=== PATIENT | female | born 1975 | race Caucasian/White ===

== ENCOUNTER 2023-08-19 10:45 | Outpatient (CLI) | payer BC, SELFPAY ==
--- OUTSIDE RECORDS SUMMARY | 2023-08-19 10:51 | XMS_ITS | Encounter Summary ---
Author Name Unknown Organization [facility] Address [address] [place] [address] Care Team Providers Care Caster Helper Name Role Phone Brooklyn Morel APRN, C.N.P. Primary Care Provide r Reason for Referral * Outpatient (Routine) - Closed Specialty Diagnoses / Procedures Referred By Chrystal t Referred To Contact Family Medicine Brooklyn Morel APRN, C.N.P. [address] [place] [address] [facility] Referral ID Status Reason Start Date Expiration Date Visits Re quested Visits Authorized [id number] Closed 02/06/2023 02/05/2026 1 1 Encounter Details Date Type Department Care Team (Late st Contact Info) Description 02/06/2023 Orders Only [facility] Brooklyn Morel APRN, C.N.P. [address] [place] [address] Screening Examination Diabetes Mellitus; Screening Lipid Social History Tobacco Use Types Packs/Day Years Used Date Smoking Tobacco: Never Assessed Humiliation, Afraid, Rape, and Kick questionnair e Answer Date Recorded Within the last year, have y ou been afraid of your partner or ex-partner? No 06/19/2022 Within the last year, have y ou been humiliated or emotionally abused in other ways by your partner or ex-partner? No Within the last year, have y ou been kicked, hit, slapped, or otherwise physically hurt by your partner or ex-partner? No 06/19/2022 Within the last year, have y ou been raped or forced to have any kind of sexual activity by your partner or ex-partner? No 06/19/2022 Social Connection and Isolat ion Panel [NHANES] Answer Date Recorded In a typical week, how many times do you talk on the phone with family, friends, or neighbors? Three times a week 06/19/2022 How often do you get togethe r with friends or relatives? Once a week 06/19/2022 How often do you attend chur ch or gnosticist services? Never 06/19/2022 Do you belong to any clubs o r organizations such as buddhism groups, unions, fraternal or athletic groups, or school groups? Yes 06/19/2022 How often do you attend meet ings of the clubs or organizations you belong to? More than 4 times per year 06/19/2022 Are you , , di vorced, , never , or living with a partner? 06/19/2022 AUDIT-C Answer Date Recorded Q1: How often do you have a drink containing alc ohol? Never 06/19/2022 Average Number of Drinks Not on file 022 Frequency of Binge Drinking Not on file 06/07 Overall Financial Resource Strain (CARDIA) Answe r Date Recorded How hard is it for you to pa y for the very basics like food, housing, medical care, and heating? Not hard at all 06/19/2022 [facility] - Occupational Stress Questionnaire Answer Date Recorded Do you feel stress - tense, restless, nervous, or anxious, or unable to sleep at night because your mind is troubled all the time - these days? Not at all 06/19/2022 Exercise Vital Sign Answer Date Recorde d On average, how many days pe r week do you engage in moderate to strenuous exercise (like a brisk walk)? 2 days 06/19/2022 On average, how many minutes do you engage in exercise at this level? 20 min 06/19/2022 Hunger Vital Sign Answer Date Recorded Within the past 12 months, y ou worried that your food would run out before you got the money to buy more. Never true 06/19/20 Within the past 12 months, t he food you bought just didn't last and you didn't have money to get more. Never true 06/19/2022 PRAPARE - Transportation Answer Date Re corded In the past 12 months, has l ack of transportation kept you from medical appointments or from getting medications? No 06/07 In the past 12 months, has l ack of transportation kept you from meetings, work, or from getting things needed for daily living? No 06/19/2022 Housing Stability Vital Sign Answer Carson e Recorded In the last 12 months, was t here a time when you were not able to pay the mortgage or rent on time? No 06/19/2022 In the last 12 months, how many places have you lived? 1 06/19/2022 In the last 12 months, was t here a time when you did not have a steady place to sleep or slept in a penitentiary (including now)? No 06/19/2022 Nutrition Answer Date Recorded Nutrition: EVOO Fat Source No 06/19 On average, how many serving s of fruits and vegetables do you eat per day (serving size is equal to 1 cup or approximately the size of a tennis ball)? 2-3 06/19/2022 Dental Answer Date Recorded Dental: Regular Dentist Yes 06/19/20 Employment Answer Date Recorded Employment status Employed and actively working without restrictions 06/19/2022 Education Answer Date Recorded What is the highest level of school you have completed or the highest degree you have received? Bachelor's degree (e.g., BA, AB, BS) 06/19/2022 Sex and Gender Information Value Date Recorded Sex Assigned at Female 06/19/2022 4:23 PM NEWS TECHNICAL DIRECTOR Gender Identity Female 06/19/2022 4:23 PM NEWS TECHNICAL DIRECTOR Sexual Orientation Straight 06/19/2022 4: 23 PM NEWS TECHNICAL DIRECTOR documented as of this encounter Plan of Treatment Scheduled Referrals Name Type Priority Associated Diagnoses Orde r Schedule Family Medicine office visit (clinic) Outpatient Referral Routine Expected: 02/20/2023, Expires: 08/05/2023 documented as of this encounter Visit Diagnoses Diagnosis Screening Examination Diabetes Mellitus Screening Lipid documented in this encounter Care Teams Caster Helper Relationship Specialty Start Date End Date Brooklyn Morel APRN, C.N.P. [address] [place] [address] PCP - General Family Medicine 12/24/22 documented as of this encounter
--- OUTSIDE RECORDS SUMMARY | 2023-08-19 10:51 | XMS_ITS | Clinical Summary ---
Author Name Unknown Organization [facility] Address [place], [place] [address] Care Team Providers Care C D Stripper Name Role Phone Rosalinda Montalvo Primary Care Provider Allergies Active Allergy Reactions Criticality Noted Date Comments Sunlight Hives 08/15/2010 Medications Medication Sig Dispensed Refills Start Date End Date Status HYDROcodone-acetam inophen, 7.5-325 mg, (NORCO 7.5-325) 7.5-325 mg per tabletIndications: Rib pain on right side Take 1 tablet by mouth every 6 hours if needed for Pain Max acetaminophen dose: 4000mg in 24 hrs. 30 tablet 0 03/20/2016 Active Active Problems No known active problems Immunizations Name Administration Dates Next Due MMR 01/09/2013 Td (Age >=7 Years) 01/28/2004 Tdap 01/07/2011 Tuberculin (PPD) 01/07/2013,12/22/2012 Family History Medical History Relation Name Comments Hypertension Father Cancer-breast Other Cousin Genetic Sister Patti's Diseas e (autosomal recessive neurodegenerative disorder) Seizures Sister part of Patti' s Disease Relation Name Status Comments Father Other Sister Social History Tobacco Use Types Packs/Day Years Used Date Smoking Tobacco: Never Smokeless Tobacco: Never Alcohol Use Standard Drinks/Week Comments No 0 (1 standard drink = 0.6 oz pur e alcohol) Sex and Gender Information Value Date Recorded Sex Assigned at Not on file Gender Identity Not on file Sexual Orientation Not on file Obstetrics History Para Term AB IAB SAB Ectopic Multiple Livin g Live Births 3 3 Date Outcome GA Total Labor Labor/2nd/3rd Weight Sex Delivery Anes PTL Hailey A1 A5 Name Cl in Para Para Para Last Filed Vital Signs Vital Sign Reading Time Taken Comments Blood Pressure 128/86 03/20/2016 1:52 PM CDT Pulse 80 03/20/2016 1:52 PM CDT Temperature 37.6 ??C (99.7 ??F) 03/20/2016 1:52 PM CD T Respiratory Rate - - Oxygen Saturation 98% 03/20/2016 1:52 PM CDT Inhaled Oxygen Concentration - - Weight 112.5 kg (248 lb) 03/20/2016 1:52 PM CDT Height 170.2 cm (5' 7.01) 03/20/2016 1:52 PM CD T Body Mass Index 38.83 03/20/2016 1:52 PM CDT Plan of Treatment Health Maintenance Due Date Last Done Comments COVID-19 vaccine series (#1) 03/15/1974 HIV for age 15-65 1988 Hepatitis C screening for age 18-79 09/13/1991 Depression screening for age 12+ 03/08/2017 03/08/2016 BMI (ht and wt on same day) for age 18+ 03/20/2017 03/20/2016, 03/08/2016 Colonoscopy through age 75 2018 Lipids for age 45-75 2018 12/22/2012 Mammogram for age 45-75 2018 Tetanus booster 01/07/2021 01/07/2011, 01/06 (Completed outside of [facility]), 01/28/2004 Pap test for age 21-65 05/15/2022 9, 05/15/2019, 08/14/2016, Additional history exists Influenza for age 9-49 03/08/2023 Tdap Completed 01/07/2011 Pneumococcal series for age 6-64 Aged Out No longer eligible based on patient's age to complete this topic Care Teams C D Stripper Relationship Specialty Start Date End Date Rosalinda Montalvo PA PCP - General Family Practice 12/22/12
--- OUTSIDE RECORDS SUMMARY | 2023-08-19 10:51 | XMS_ITS ---
Author Name Unknown Organization [facility] Address [address] [place] [address] Care Team Providers Care Electric Motor Controls Assembler Name Role Phone Unavailable Unavailable Unavailable Surgery Details Not on file Complications Check Surgery Details section. Procedure Estimated Blood Loss Check Surgery Details section. Procedure Findings Check Surgery Details section. Procedure Specimens Taken Check Surgery Details section.
--- OUTSIDE RECORDS SUMMARY | 2023-08-19 10:51 | XMS_ITS | Encounter Summary ---
Author Name Unknown Organization [facility] Address [address] [place] [address] Care Team Providers Care Cup Trimming Machine Operator Name Role Phone Brooklyn Morel APRN, C.N.P. Primary Care Provide r Reason for Referral * Outpatient (Routine) - Authorized Specialty Diagnoses / Procedures Referred By Chrystal t Referred To Contact Family Medicine Brooklyn Morel APRN, C.N.P. [address] [place] [address] [facility] Referral ID Status Reason Start Date Expiration Date V isits Requested Visits Authorized [id number] Authorized 08/13/2023 02/11/2025 1 1 RGROUND MINE SUPERINTENDENT Encounter Details Date Type Department Care Team (Late st Contact Info) Description 08/13/2023 [facility] Only [facility] Brooklyn Morel APRN, C.N.P. [address] [place] [address] Social History Tobacco Use Types Packs/Day Years Used Date Smoking Tobacco: Never Smokeless Tobacco: Never Humiliation, Afraid, Rape, and Kick questionnair e [...] often do you attend chur ch or mormonism services? Never 06/19/2022 Do you belong to any clubs o r organizations such as orthodoxy groups, unions, fraternal or athletic groups, or [...] and heating? Not hard at all 06/19/2022 PHQ-2 Answer Date Recorded PHQ-2 Score 0 04/08/2023 [facility] - Occupational Stress [...] place to sleep or slept in a mcc (including now)? No 06/19/2022 Nutrition Answer Date [...] Sex Assigned at Female 06/19/2022 4:23 PM UNDERGROUND MINE SUPERINTENDENT Gender Identity Female 06/19/2022 4:23 PM UNDERGROUND MINE SUPERINTENDENT Sexual Orientation Straight 06/19/2022 4: 23 PM UNDERGROUND MINE SUPERINTENDENT documented as of this encounter Plan of Treatment Scheduled Referrals Name Type Priority Associated Diagnoses Orde r Schedule Family Medicine office visit (clinic) Outpatient Referral Routine Expected: 08/27/2023, Expires: 02/09/2024 documented as of this encounter Visit Diagnoses Not on filedocumented in this encounter Care Teams Cup Trimming Machine Operator Relationship Specialty Start Date End Date Brooklyn Morel APRN, C.N.P. [address] [place] [address] PCP - General Family Medicine 12/24/22 documented as of this encounter
--- OUTSIDE RECORDS SUMMARY | 2023-08-19 10:51 | XMS_ITS | Encounter Summary ---
Author Name Unknown Organization [facility] Address [address] [place] [address] Care Team Providers Care Orchard Manager Name Role Phone Brooklyn Morel APRN, C.N.P. Primary Care Provide r Reason for Referral * Outpatient (Routine) - Authorized Specialty Diagnoses / Procedures Referred By Chrystal lawson Referred To Contact Obstetrics and Gynecology Diagnoses Menstrual Irregularity Brooklyn Morel APRN, C.N.P. [address] [place] [address] [facility] Region Referral ID Status Reason Start Date Expiration Date V isits Requested Visits Authorized [id number] Authorized 04/08/2023 04/07/2024 1 1 Reason for Visit * Reason Comments Establish Care Pap and labs needed. No period in February but last period was very heavy * Outpatient (Routine) - Closed Specialty Diagnoses / Procedures Referred By Chrystal lawson Referred To Contact Family Medicine Brooklyn Morel APRN, C.N.P. [address] [place] [address] [facility] Region Referral ID Status Reason Start Date Expiration Date Visits Re quested Visits Authorized [id number] Closed 02/06/2023 02/05/2026 1 1 Encounter Details Date Type Department Care Team (Late st Contact Info) Description 04/08/2023 4:00 PM CDT Office Visit Department of Family Medicine, [facility], in [address] [phone] Brooklyn Morel, SISTER SUPERIOR, C.N.P. [address] [facility] [place] [phone] Health Maintenance Examination Adult (Primary Dx); Menstrual Irregularity Discharge Disposition: Home or Self Care Social History Tobacco Use Types Packs/Day Years Used Date Smoking Tobacco: Never Smokeless Tobacco: Never Tobacco Cessation:Counseling Given: Not Answered Humiliation, Afraid, Rape, and Kick questionnair e [...] 06/19/2022 How often do you attend chur or adventism services? Never 06/19/2022 Do you belong to any clubs o r organizations such as anglican groups, unions, fraternal or athletic groups, or [...] Answer Date Recorded PHQ-2 Score 0 04/08/2023 [facility] - Occupational [...] money to buy more. Never true 06/19/20 22 Within the past 12 months, t he [...] place to sleep or slept in a [facility] (including now)? No 06/19/2022 Nutrition Answer Date [...] Sex Assigned at Female 06/19/2022 4:23 PM AITCHBONE BREAKER Gender Identity Female 06/19/2022 4:23 PM AITCHBONE BREAKER Sexual Orientation Straight 06/19/2022 4: 23 PM AITCHBONE BREAKER documented as of this encounter Last Filed Vital Signs Vital Sign Reading Time Taken Comments Blood Pressure 123/83 04/08/2023 4:14 PM CDT Pulse 98 04/08/2023 4:14 PM CDT Temperature 36.3 ??C (97.3 ??F) 04/08/2023 4:14 PM CD T Respiratory Rate - - Oxygen Saturation 96% 04/08/2023 4:14 PM CDT Inhaled Oxygen Concentration - - Weight 122 kg (268 lb 15.4 oz) 04/08/2023 4:14 P M CDT Height 172.1 cm (5' 7.76) 04/08/2023 4:14 PM CD T Body Mass Index 41.19 04/08/2023 4:14 PM CDT documented in this encounter H&P Notes * Brooklyn Morel, GÓMEZ, C.N.P. - 04/08/2023 4:00 PM CDT SUBJECTIVE HISTORY OF PRESENT ILLNESS Rand Wright is a 47 y.o. female here for an annual exam/ establish care. Periods are irregular lasting 5 days without spotting or dysmenorrhea. Patient reports heavy menstruation, cramps, no period for the month of Feb, Mar or Apr. Current contraception: abstinence Diet: well balanced-cook at home when able, on the go Exercise:Occasional cardiovascular exercise outside of work. Encouraged to increase frequency to 3-4 days/week Mental Health Concerns: No Counseled regarding getting 1200 mg Calcium and 800 IU Vit D between diet and supplements, ABCDs ofchanging moles discussed and to have skin lesions evaluated if such changes occur. Sunscreen use encouraged. Dental exams and eye exams encouraged regularly. PREVENTATIVE MEASURES: Vaccines: up to date as of today Labs:Pending Pap: 05/15/19 Mammogram: December 2022-completed Colon Screening: colonoscopy - 06-27, will need q 3 years Bone Density: none STD screening: none CURRENT MEDICATIONS No current outpatient medications on file. No current facility-administered medications for this visit. SURGICAL HISTORY, FAMILY HISTORY Reviewed/Updated REVIEW OF SYSTEMS REVIEW OF SYSTEMS OBJECTIVE PHYSICAL EXAMINATION General appearance: Alert, no distress. Skin: No rashes or suspicious skin lesions noted. Eye: Conjunctivae normal. No scleral icterus. Pupils equal and round. ENT: Ears with normal canals and TMs. Nares normal. Oropharynx normal without erythema, edema or exudate. Uvula midline. Neck: No adenopathy or thyromegaly. Heart: Regular rate and rhythm without murmur. No leg edema. Lungs: Clear to auscultation with normal respiratory effort. Extremities: No edema. Motor strength and sensation grossly intact. Abdomen: Soft, non-tender. No guarding or rigidity. No organomegaly. Neurologic: CN II-XII intact as tested. Psych: Behavior, mood, affect, cognition and insight are all appropriate ASSESSMENT / PLAN 1. Health Maintenance Examination Adult Annual Wellness exam today. Discussed routine health maintenance for age. #1 Health Maintenance Examination Adult - Lipid Panel; Future; Expected date: 07/09/2023 - Glucose, Fasting; Future; Expected date: 07/09/2023 - Basic Metabolic Panel; Future; Expected date: 07/09/2023 #2 Menstrual Irregularity - Obstetrics and Gynecology - Gynecology consult (clinic); Future; Expected date: 04/08/2023 Other orders - Family Medicine office visit (clinic) - CBC with Differential, Blood; Future; Expected date: 07/09/2023 Lipid screen: Labs pending Diabetes screen: Labs pending Colonoscopy: Due at 2023 Immunizations: up to date Mammogram: 09/12/18-last completed. Bone Density: Due at age 63 Follow-up 1 year for annual exam or return to clinic sooner if any problems develop. Plan: Labs pending, health maintenance was reviewed today. Patient will sign a release for her health records to come over from the [facility]. Past medical surgery and family history reviewed today. Patient was asked to follow-up in clinic in 1-2 months to review records and further health maintenance topics. Patient/caregiver was instructed to contact the clinic if symptoms fail to improve as discussed, worsen, or change. Patient/caregiver was in agreement with the care plan and all questions were answered. Health maintenance was discussed, and the patient/caregiver was encouraged to complete these if not already completed. Patient left in no acute distress. Brooklyn Morel APRN, C.N.P. documented in this encounter Plan of Treatment Scheduled Orders Name Type Priority Associated Diagnoses Orde r Schedule Lipid Panel Lab Routine Health Maintenance Examination Adult Expected: 07/09/2023 (Approximate), Expires: 07/09/2024 Glucose, Fasting Lab Routine Health Maintenance Examination Adult Expected: 07/09/2023 (Approximate), Expires: 07/09/2024 Basic Metabolic Panel Lab Routine Health Maintenance Examination Adult Expected: 07/09/2023 (Approximate), Expires: 07/09/2024 CBC with Differential, Blood Lab Routine Health Maintenance Examination Adult Menstrual Irregularity Expected: 07/09/2023 (Approximate), Expires: 07/09/2024 Scheduled Referrals Name Type Priority Associated Diagnoses Orde r Schedule Obstetrics and Gynecology - Gynecology consult (clinic) Outpatient Referral Routine Menstrual Irregularity Expected: 04/08/2023 (Approximate), Expires: 07/09/2024 documented as of this encounter Visit Diagnoses Diagnosis Health Maintenance Examination Adult- Primary Menstrual Irregularity documented in this encounter Care Teams Orchard Manager Relationship Specialty Start Date End Date Brooklyn Morel APRN, C.N.P. [address] [place] [phone] PCP - General Family Medicine 12/24/22 documented as of this encounter
--- OUTSIDE RECORDS SUMMARY | 2023-08-19 10:51 | XMS_ITS | Clinical Summary ---
Author Name Unknown Organization [facility] Address [address] [place] [address] Care Team Providers Care Visitor Services Information Assistant Name Role Phone Brooklyn Morel APRN, C.N.P. Primary Care Provide r Source Comments Patient records contain information from all sites at [facility]. For routine questions regarding patient records, call [phone] during business hours, M-F 8:00 AM - 5:00 PM Central Time. Record requests for emergency care only can be directed to [phone] at any time.[facility] Allergies Active Allergy Reactions Criticality Noted Date Comments Venom-Honey Bee Hives (Reselect Reaction),Itching 04/01/2021 Medications No known medications Encounters Date Type Department Care Team Description 08/13/2023 Orders Only [facility] SELF TEST [facility] [address] [place] [phone] Brooklyn Morel APRN, C.N.P. Screening Cancer Colon 08/13/2023 Orders Only [facility] PCP [facility] Brooklyn Morel APRN, C.N.P. from Last 3 Months Immunizations Name Administration Dates Next Due H1N1 All Forms 06/24/2009 MMR 01/09/2013 Td (Adult), adsorbed 01/28/2004,02/04/2003 Tdap 04/18/2021,01/07/2011 Family History Medical History Relation Name Comments Diabetes mellitus - adult onset Father Hypertension Father Breast cancer Father's Sister 1 Maia 60s Breast cancer Father's Sister 2 Jade 60s Breast cancer Father's Sister 3 Pao 40s Cancer Father's Sister 4 Anabel suspect me tastatic breast cancer Breast cancer Paternal Cousin 1 Maria Esther late 30s Breast cancer Paternal Cousin 2 Gris mid 40s Breast cancer Paternal Cousin 3 60s Prostate cancer Paternal Grandfather late 70s Patti disease Sister 1 Relation Name Status Comments Brother 1 Alive Brother 2 Alive Father Alive Father's Brother 1 (Age 84) Father's Brother 2 Alive Father's Sister 1 Nicole Lyons Alive Father's Sister 2 Jade Father's Sister 3 Pao (Age 45) Father's Sister 4 Anabel (Age 70) Maternal Grandfather (Age 62) Maternal Grandmother (Age 76) Mother Alive Niece/Nephew 1 Alive Niece/Nephew 2 Alive Niece/Nephew 3 Alive Other Alive Paternal Cousin 1 Maria Esther (Age 42) Paternal Cousin 2 Gris Alive Paternal Cousin 3 Alive Paternal Grandfather (Age 80) Paternal Grandmother (Age 81) Sister 1 (Age 40) Sister 2 Alive Son 1 Alive Son 2 Alive Son 3 Alive Uncle Mat Half Aunt thru GM Alive father is pt's maternal grandfather's brother Social History Tobacco Use Types Packs/Day Years [...] week 06/19/2022 How often do you attend [facility] or synagogue services? Never 06/19/2022 Do you belong to any clubs o r organizations such as taoist groups, unions, fraternal or athletic groups, or [...] Answer Date Recorded PHQ-2 Score 0 04/08/2023 [facility] - Occupational Stress Questionnaire Answer Date Recorded [...] place to sleep or slept in a custodial (including now)? No 06/19/2022 Nutrition Answer Date [...] Sex Assigned at Female 06/19/2022 4:23 PM CHIP FRIER Gender Identity Female 06/19/2022 4:23 PM CHIP FRIER Sexual Orientation Straight 06/19/2022 4: 23 PM CHIP FRIER Last Filed Vital Signs Vital Sign Reading [...] Mass Index 41.19 04/08/2023 4:14 PM CDT Plan of Treatment Health Maintenance Due Date Last Done Comments CT Colonography 1973 Cervical Cancer Screening 1973 Cologuard 1973 Colonoscopy 1973 Colorectal Cancer Screening 1973 FIT 1973 Fasting Glucose for Diabetes Screening 1973 HIV Screening 1973 Hepatitis B Vaccines (1 of 3 - 3-dose series) 1973 Hepatitis C Screening 1973 Lipid (Cholesterol) Screening 1973 Influenza Vaccine (#1) 2023 Depression Screening (Annual PHQ-2) 07/08/2023 Mammogram 12/27/2023 12/26/2022, 07/10, 08/24/2016, Additional history exists COVID-19 Vaccine (#1) 04/08/2024 Postpo elinor from 03/15/1974 (Patient Refused) DTaP,Tdap,and Td Vaccines (3 - Td or Tdap) 04/18/2031 04/18/2021, 01/07/2011, 01/28/2004, Additional history exists Pneumococcal vaccine (0-64 years) Aged Out No longer eligible based on patient's age to complete this topic Care Teams Visitor Services Information Assistant Relationship Specialty Start Date End Date Brooklyn Morel APRN, C.N.P. [address] [place] [phone] PCP - General Family Medicine 12/24/22
--- OUTSIDE RECORDS SUMMARY | 2023-08-19 10:51 | XMS_ITS | Encounter Summary ---
Author Name Unknown Organization [facility] Address [address] [place] [address] Care Team Providers Care Dye Penetrant Testing Technician Name Role Phone [place] APRN, C.N.P. Primary Care Provide r Reason for Referral * Outpatient (Routine) - Closed Specialty Diagnoses / Procedures Referred By Chrystal lawson Referred To Contact Diagnoses Screening Mammogram Breast Cancer Procedures BI Breast Screening Bilateral with Tomosynthesis [place] Morel APRN, C.N.P. [address] [place] [address] [facility] Region Referral ID Status Reason Start Date Expiration Date Visits Re quested Visits Authorized [id number] Closed 12/24/2022 12/24/2023 1 1 Reason for Visit * Outpatient (Routine) - Closed Specialty Diagnoses / Procedures Referred By Chrystal lawson Referred To Contact Diagnoses Screening Mammogram Breast Cancer Procedures BI Breast Screening Bilateral with Tomosynthesis [place] Morel APRN, C.N.P. [address] [place] [address] [facility] Region Referral ID Status Reason Start Date Expiration Date Visits Re quested Visits Authorized [id number] Closed 12/24/2022 12/24/2023 1 1 Encounter Details Date Type Department Care Team (Latest Contact Info) Description 12/26/2022 9:45 AM CDT - 12/26/2022 11:59 PM CDT Hospital Encounter Department of Radiology in [address] [place] [phone] [place]l, SOA INTEGRATION DEVELOPER, C.N.P. [address] [place] [phone] Screening Mammogram Breast Cancer Discharge Disposition: Home or Self Care Social [...] How often do you attend chur or latter-day services? Never 06/19/2022 Do you belong to any clubs o r organizations such as rastafarian groups, unions, fraternal or athletic groups, or [...] and heating? Not hard at all 06/19/2022 [facility] [place] of Occupat ional Health - Occupational Stress [...] place to sleep or slept in a fci (including now)? No 06/19/2022 Nutrition Answer Date [...] Sex Assigned at Female 06/19/2022 4:23 PM BUSINESS STRATEGY MANAGER Gender Identity Female 06/19/2022 4:23 PM BUSINESS STRATEGY MANAGER Sexual Orientation Straight 06/19/2022 4: 23 PM BUSINESS STRATEGY MANAGER documented as of this encounter Plan of Treatment Not on file documented as of this encounter Procedures Procedure Name Priority Date/Time Associated Diagnosis Comments BI BREAST SCREENING BILATERAL WITH TOMOSYNTHESIS RAD - Routine (most inpatients and all outpatients) 12/26/2022 10:12 AM CDT Screening Mammogram Breast Cancer documented in this encounter Results * BI Breast Screening Bilateral with Tomosynthesis (12/26/2022 10:12 AM CDT) Anatomical Region Laterality Modality Breast, Breast Imaging RST L OS, Breast Imaging ARZ LOS, Breast Imaging FLA LOS Bilateral Mammography 12/26/2022 10:5 1 AM CDT Impressions 12/26/2022 10:54 AM CDT Negative. RECOMMENDATION: ??Annual Screening Mammogram ASSESSMENT: ??BI-RADS: 1: Negative. Narrative 12/26/2022 10:54 AM CDT EXAM: ??BI BREAST SCREENING BILATERAL WITH TOMOSYNTHESIS Current study was evaluated with a Computer Aided Detection (CAD) system. INDICATION: ??Screening mammogram. COMPARISON: ??Prior exam(s) were available and reviewed for comparison. DENSITY: ??b. There are scattered areas of fibroglandular density. FINDINGS: ??No mammographic findings of malignancy. Procedure Note Marilynn Medina M.D. - 12/26/2022 EXAM: BI BREAST SCREENING BILATERAL WITH TOMOSYNTHESIS Current study was evaluated with a Computer Aided Detection (CAD) system. INDICATION: Screening mammogram. COMPARISON: Prior exam(s) were available and reviewed for comparison. DENSITY: b. There are scattered areas of fibroglandular density. FINDINGS: No mammographic findings of malignancy. IMPRESSION: Negative. RECOMMENDATION: Annual Screening Mammogram ASSESSMENT: BI-RADS: 1: Negative. [place] Morel APRN, C.N.P. IMG BI PROCED URES documented in this encounter Visit Diagnoses Diagnosis Screening Mammogram Breast Cancer documented in this encounter Care Teams Dye Penetrant Testing Technician Relationship Specialty Start Date End Date [place]l APRN, C.N.P. [address] [place] [phone] PCP - General Family Medicine 12/24/22 documented as of this encounter
--- OUTSIDE RECORDS SUMMARY | 2023-08-19 10:51 | XMS_ITS | Encounter Summary ---
Author Name Unknown Organization [facility] Address [address] [place] [address] Care Team Providers Care Coating Mixer Tender Name Role Phone [place] Morel APRN, C.N.P. Primary Care Provide r Encounter Details Date Type Department Care Team (Late st Contact Info) Description 08/13/2023 Orders Only [facility] [address] [place] [address] [place] Morel APRN, C.N.P. [address] [place] [phone] Screening Cancer Colon Social History Tobacco Use Types Packs/Day Years [...] often do you attend chur ch or adventist services? Never 06/19/2022 Do you belong to any clubs o r organizations such as baptist groups, unions, fraternal or athletic groups, or [...] Answer Date Recorded PHQ-2 Score 0 04/08/2023 [facility] of Occupat ional Health - [...] place to sleep or slept in a senior care (including now)? No 06/19/2022 Nutrition Answer Date [...] Sex Assigned at Female 06/19/2022 4:23 PM BATTERY INSPECTOR Gender Identity Female 06/19/2022 4:23 PM BATTERY INSPECTOR Sexual Orientation Straight 06/19/2022 4: 23 PM BATTERY INSPECTOR documented as of this encounter Plan of Treatment Scheduled Orders Name Type Priority Associated Diagnoses Orde r Schedule Cologuard - Sent Out Lab Lab Routine Screening Cancer Colon Expected: 08/27/2023 (Approximate), Expires: 11/10/2024 documented as of this encounter Visit Diagnoses Diagnosis Screening Cancer Colon documented in this encounter Care Teams Coating Mixer Tender Relationship Specialty Start Date End Date [place] Morel APRN, C.N.P. [address] [place] [address] [place] [phone] PCP - General Family Medicine 12/24/22 documented as of this encounter
--- OUTSIDE RECORDS SUMMARY | 2023-08-19 10:51 | XMS_ITS | Referral Summary ---
Author Name Unknown Organization [facility] Address [address] [place] [address] Care Team Providers Care Convention Services Manager Name Role Phone [place] APRN, C.N.P. Primary Care Provide r Source Comments Patient records contain information from all sites at [facility]. For routine questions regarding patient records, call [phone] during business hours, M-F 8:00 AM - 5:00 PM Central Time. Record requests for emergency care only can be directed to [phone] at any time.[facility] Encounters Date Type Department Care Team Description 08/13/2023 Orders Only [facility] [address] [place] [phone] [place] APRN, C.N.P. Screening Cancer Colon 08/13/2023 Orders Only [facility] [place] APR[facility], C.N.P. from Last 3 Months Allergies Active Allergy Reactions Criticality Noted Date Comments Venom-Honey Bee Hives (Reselect Reaction),Itching 04/01/2021 Medications No known medications Immunizations Name Administration Dates Next Due H1N1 All Forms 06/24/2009 MMR 01/09/2013 Td (Adult), adsorbed 01/28/2004,02/04/2003 Tdap 04/18/2021,01/07/2011 Social History Tobacco Use Types Packs/Day Years [...] often do you attend chur ch or taoism services? Never 06/19/2022 Do you belong to any clubs o r organizations such as shinto groups, unions, fraternal or athletic groups, or [...] PHQ-2 Score 0 04/08/2023 [facility] of Occupat ional Health - Occupational Stress [...] place to sleep or slept in a usp (including now)? No 06/19/2022 Nutrition Answer Date [...] Sex Assigned at Female 06/19/2022 4:23 PM COIN DEALER Gender Identity Female 06/19/2022 4:23 PM COIN DEALER Sexual Orientation Straight 06/19/2022 4: 23 PM COIN DEALER Last Filed Vital Signs Vital Sign Reading [...] 04/08/2023 4:14 PM CDT Plan of Treatment Not on file Care Teams Convention Services Manager Relationship Specialty Start Date End Date [place] Morel APRN, C.N.P. [address] [place] [phone] PCP - General Family Medicine 12/24/22
== END 2023-08-19 10:46 | disposition home or self-care (01) ==
PROVIDERS: PCP Nurse Practitioner Family; Visit Provider Nurse Practitioner Family
DX: R53.1 Weakness (principal); R19.7 Diarrhea, unspecified; Z13.228 Encounter for screening for other metabolic disorders; Z13.0 Encounter for screening for diseases of the blood and blood-forming organs and certain disorders involving the immune mechanism
CPT/HCPCS: 80048; 85025

== ENCOUNTER 2023-08-20 10:52 | Outpatient (CLI) | payer BC, SELFPAY ==
--- OUTSIDE RECORDS SUMMARY | 2023-08-21 06:14 | XMS_ITS | Encounter Summary ---
Author Name Unknown Organization [facility] Address [address] [place] [address] Care Team Providers Care Welfare Officer Name Role Phone [place] Morel APRN, C.N.P. Primary Care Provide r Reason for Referral * Outpatient (Routine) - Authorized Specialty Diagnoses / Procedures Referred By Chrystal lawson Referred To Contact Obstetrics and Gynecology Diagnoses Menstrual Irregularity [place] Morel APRN, C.N.P. [address] [place] [address] [facility] Region Referral ID Status Reason Start Date Expiration Date V isits Requested Visits Authorized [id number] Authorized 04/08/2023 04/07/2024 1 1 Reason for Visit * Reason Comments Establish Care Pap and labs needed. No period in February but last period was very heavy * Outpatient (Routine) - Closed Specialty Diagnoses / Procedures Referred By Chrystal lawson Referred To Contact Family Medicine [place] Morel APRN, C.N.P. [address] [place] [address] [facility] Region Referral ID Status Reason Start Date Expiration Date Visits Re quested Visits Authorized [id number] Closed 02/06/2023 02/05/2026 1 1 Encounter Details Date Type Department Care Team (Late st Contact Info) Description 04/08/2023 4:00 PM CDT Office Visit Department of Family Medicine, [facility], in [address] [phone] [place]l, INFORMATION SPECIALIST, C.N.P. [address] [facility] [place] [phone] Health Maintenance Examination Adult (Primary Dx); Menstrual [...] How often do you attend chur or orthodoxy services? Never 06/19/2022 Do you belong to any clubs o r organizations such as lutheran groups, unions, fraternal or athletic groups, or [...] Answer Date Recorded PHQ-2 Score 0 04/08/2023 [facility] of Occupat ional Health - Occupational Stress [...] place to sleep or slept in a long term (including now)? No 06/19/2022 Nutrition Answer Date [...] Sex Assigned at Female 06/19/2022 4:23 PM DIRECTOR OF CONSERVATION Gender Identity Female 06/19/2022 4:23 PM DIRECTOR OF CONSERVATION Sexual Orientation Straight 06/19/2022 4: 23 PM DIRECTOR OF CONSERVATION documented as of this encounter Last Filed [...] health records to come over from the [facility]. Past medical surgery and family history reviewed [...] Irregularity documented in this encounter Care Teams Welfare Officer Relationship Specialty Start Date End Date [place] Morel APRN, C.N.P. [address] [place] [phone] PCP - General Family Medicine 12/24/22 documented as of this encounter
--- OUTSIDE RECORDS SUMMARY | 2023-08-21 06:14 | XMS_ITS | Clinical Summary ---
Author Name Unknown Organization [facility] Address [address] [place] [address] Care Team Providers Care Organ Tuner Name Role Phone [place] Morel APRN, C.N.P. Primary Care Provide r Source Comments Patient records contain information from all sites at [facility]. For routine questions regarding patient records, call [phone] during business hours, M-F 8:00 AM - 5:00 PM Central Time. Record requests for emergency care only can be directed to [phone] at any time.[facility] Allergies Active Allergy Reactions Criticality Noted Date Comments Venom-Honey Bee Hives (Reselect Reaction),Itching 04/01/2021 Medications No known medications Encounters Date Type Department Care Team Description 08/13/2023 Orders Only [facility] [address] [place] [phone] [place] Morel APRN, C.N.P. Screening Cancer Colon 08/13/2023 Orders Only [facility] PCP [facility] [place] Morel APRN, C.N.P. from Last [...] week 06/19/2022 How often do you attend [facility] or lutheran services? Never 06/19/2022 Do you belong to any clubs o r organizations such as restoration groups, unions, fraternal or athletic groups, or [...] Answer Date Recorded PHQ-2 Score 0 04/08/2023 [facility] of Occupat ional [facility] - Occupational Stress Questionnaire Answer Date [...] place to sleep or slept in a fdc (including now)? No 06/19/2022 Nutrition Answer Date [...] Sex Assigned at Female 06/19/2022 4:23 PM TAVERN CAR ATTENDANT Gender Identity Female 06/19/2022 4:23 PM TAVERN CAR ATTENDANT Sexual Orientation Straight 06/19/2022 4: 23 PM TAVERN CAR ATTENDANT Last Filed Vital Signs Vital Sign Reading [...] age to complete this topic Care Teams Organ Tuner Relationship Specialty Start Date End Date [place] Morel APRN, C.N.P. [address] [place] [phone] PCP - General Family Medicine 12/24/22
--- OUTSIDE RECORDS SUMMARY | 2023-08-21 06:14 | XMS_ITS | Clinical Summary ---
Author Name Unknown Organization [facility] Address [place], [place] [address] Care Team Providers Care Instrument Technician Apprentice Name Role Phone Rosalinda Montalvo Primary Care [...] booster 01/07/2021 01/07/2011, 01/06 (Completed outside of [facility]), 01/28/2004 Pap test for age 21-65 05/15/2022 9, 05/15/2019, 08/14/2016, Additional history exists Influenza for age 9-49 03/08/2023 Tdap Completed 01/07/2011 Pneumococcal series for age 6-64 Aged Out No longer eligible based on patient's age to complete this topic Care Teams Instrument Technician Apprentice Relationship Specialty Start Date End Date Rosalinda Montalvo PA PCP - General Family Practice 12/22/12
--- OUTSIDE RECORDS SUMMARY | 2023-08-21 06:14 | XMS_ITS | Encounter Summary ---
Author Name Unknown Organization [facility] Address [address] [place] [address] Care Team Providers Care Material Spreader Name Role Phone [place] Morel APRN, C.N.P. Primary Care Provide r Reason for Referral * Outpatient (Routine) - Closed Specialty Diagnoses / Procedures Referred By Chrystal t Referred To Contact Family Medicine [place] Morel APRN, C.N.P. [address] [place] [phone] [facility] Referral ID Status Reason Start Date Expiration Date Visits Re quested Visits Authorized [id number] Closed 02/06/2023 02/05/2026 1 1 Encounter Details Date Type Department Care Team (Late st Contact Info) Description 02/06/[address] [facility] [place]l [facility], C.N.P. [address] [place] [phone] Screening Examination Diabetes Mellitus; Screening [...] often do you attend chur ch or yazidi services? Never 06/19/2022 Do you belong to any clubs o r organizations such as nondenominational groups, unions, fraternal or athletic groups, or [...] and heating? Not hard at all 06/19/2022 [facility] of Occupat ional Health - Occupational [...] place to sleep or slept in a alf (including now)? No 06/19/2022 Nutrition Answer Date [...] Sex Assigned at Female 06/19/2022 4:23 PM PHONOGRAPH NEEDLE TIP MAKER Gender Identity Female 06/19/2022 4:23 PM PHONOGRAPH NEEDLE TIP MAKER Sexual Orientation Straight 06/19/2022 4: 23 PM PHONOGRAPH NEEDLE TIP MAKER documented as of this encounter Plan of Treatment Scheduled Referrals Name Type Priority Associated Diagnoses Orde r Schedule Family Medicine office visit (clinic) Outpatient Referral Routine Expected: 02/20/2023, Expires: 08/05/2023 documented as of this encounter Visit Diagnoses Diagnosis Screening Examination Diabetes Mellitus Screening Lipid documented in this encounter Care Teams Material Spreader Relationship Specialty Start Date End Date [place] Morel APRN, C.N.P. [address] [place] [phone] PCP - General Family Medicine 12/24/22 documented as of this encounter
--- OUTSIDE RECORDS SUMMARY | 2023-08-21 06:14 | XMS_ITS | Encounter Summary ---
Author Name Unknown Organization [facility] Address [address] [place] [address] Care Team Providers Care Tube Builder Name Role Phone [place] Morel APRN, C.N.P. Primary Care Provide r Encounter Details Date Type Department Care Team (Late st Contact Info) Description 08/13/2023 Orders Only [facility] [address] [place] [phone] [place] Morel APRN, C.N.P. [address] [place] [phone] Screening Cancer Colon Social History [...] often do you attend chur ch or jainism services? Never 06/19/2022 Do you belong to any clubs o r organizations such as spiritism groups, unions, fraternal or athletic groups, or [...] Answer Date Recorded PHQ-2 Score 0 04/08/2023 [facility] of Occupat ional Health - [...] place to sleep or slept in a detention (including now)? No 06/19/2022 Nutrition Answer Date [...] Sex Assigned at Female 06/19/2022 4:23 PM SHEET ROCK APPLICATOR Gender Identity Female 06/19/2022 4:23 PM SHEET ROCK APPLICATOR Sexual Orientation Straight 06/19/2022 4: 23 PM SHEET ROCK APPLICATOR documented as of this encounter Plan of Treatment Scheduled Orders Name Type Priority Associated Diagnoses Orde r Schedule Cologuard - Sent Out Lab Lab Routine Screening Cancer Colon Expected: 08/27/2023 (Approximate), Expires: 11/10/2024 documented as of this encounter Visit Diagnoses Diagnosis Screening Cancer Colon documented in this encounter Care Teams Tube Builder Relationship Specialty Start Date End Date [place] Morel APRN, C.N.P. [address] [place] [address] [place] [phone] PCP - General Family Medicine 12/24/22 documented as of this encounter
--- OUTSIDE RECORDS SUMMARY | 2023-08-21 06:14 | XMS_ITS | Encounter Summary ---
Author Name Unknown Organization [facility] Address [address] [place] [address] Care Team Providers Care Marketing Specialist Name Role Phone [place] Morel APRN, C.N.P. Primary Care Provide r Reason for Referral * Outpatient (Routine) - Authorized Specialty Diagnoses / Procedures Referred By Chrystal t Referred To Contact Family Medicine [place] Morel APRN, C.N.P. [address] [place] [phone] [facility] Referral ID Status Reason Start Date Expiration Date V isits Requested Visits Authorized [id number] Authorized 08/13/2023 02/11/2025 1 1 NATOLOGY PHYSICIAN Encounter Details Date Type Department Care Team (Late st Contact Info) Description 08/13/2023 [facility] [place]l APRN, C.N.P. [address] [place] [phone] Social History Tobacco Use Types [...] often do you attend chur ch or confucianism services? Never 06/19/2022 Do you belong to any clubs o r organizations such as yazidi groups, unions, fraternal or athletic groups, or [...] Answer Date Recorded PHQ-2 Score 0 04/08/2023 [facility] of Occupat ional Health - Occupational Stress [...] to sleep or slept in a senior living (including now)? No 06/19/2022 Nutrition Answer Date [...] Sex Assigned at Female 06/19/2022 4:23 PM PERINATOLOGY PHYSICIAN Gender Identity Female 06/19/2022 4:23 PM PERINATOLOGY PHYSICIAN Sexual Orientation Straight 06/19/2022 4: 23 PM PERINATOLOGY PHYSICIAN documented as of this encounter Plan of Treatment Scheduled Referrals Name Type Priority Associated Diagnoses Orde r Schedule Family Medicine office visit (clinic) Outpatient Referral Routine Expected: 08/27/2023, Expires: 02/09/2024 documented as of this encounter Visit Diagnoses Not on filedocumented in this encounter Care Teams Marketing Specialist Relationship Specialty Start Date End Date [place] Morel APRN, C.N.P. [address] [place] [phone] PCP - General Family Medicine 12/24/22 documented as of this encounter
--- OUTSIDE RECORDS SUMMARY | 2023-08-21 06:14 | XMS_ITS | Encounter Summary ---
Author Name Unknown Organization [facility] Address [address] [place] [address] Care Team Providers Care Writer Editor Name Role Phone [place] Morel APRN, C.N.P. Primary Care Provide r Reason for Referral * Outpatient (Routine) - Closed Specialty Diagnoses / Procedures Referred By Chrystal lawson Referred To Contact Diagnoses Screening Mammogram Breast Cancer Procedures BI Breast Screening Bilateral with Tomosynthesis [place] Morel APRN, C.N.P. [address] [place] [address] [facility] Region Referral ID Status Reason Start Date Expiration Date Visits Re quested Visits Authorized [id number] Closed 12/24/2022 12/24/2023 1 1 Reason for Visit * Outpatient (Routine) - Closed Specialty Diagnoses / Procedures Referred By Chrystal lawson Referred To Contact Diagnoses Screening Mammogram Breast Cancer Procedures BI Breast Screening Bilateral with Tomosynthesis [place] Morel APRN, C.N.P. [address] [place] [address] [facility] Region Referral ID Status Reason Start Date Expiration Date Visits Re quested Visits Authorized [id number] Closed 12/24/2022 12/24/2023 1 1 Encounter Details Date Type Department Care Team (Latest Contact Info) Description 12/26/2022 9:45 AM CDT - 12/26/2022 11:59 PM CDT Hospital Encounter Department of Radiology in [address] [place] [phone] [place] Morel, MOBILE EQUIPMENT MECHANIC, C.N.P. [address] [place] [phone] Screening Mammogram Breast Cancer Discharge Disposition: Home [...] any clubs o r organizations such as yarsanism groups, unions, fraternal or athletic groups, or [...] and heating? Not hard at all 06/19/2022 [facility] [place] of Occupat ional Health - Occupational Stress [...] place to sleep or slept in a half-way (including now)? No 06/19/2022 Nutrition Answer Date [...] Sex Assigned at Female 06/19/2022 4:23 PM COMMERCIAL HELICOPTER PILOT Gender Identity Female 06/19/2022 4:23 PM COMMERCIAL HELICOPTER PILOT Sexual Orientation Straight 06/19/2022 4: 23 PM COMMERCIAL HELICOPTER PILOT documented as of this encounter Plan of [...] Cancer documented in this encounter Care Teams Writer Editor Relationship Specialty Start Date End Date [place] Morel APRN, C.N.P. [address] [place] [phone] PCP - General Family Medicine 12/24/22 documented as of this encounter
--- OUTSIDE RECORDS SUMMARY | 2023-08-21 06:14 | XMS_ITS ---
Author Name Unknown Organization [facility] Address [address] [place] [address] Care Team Providers Care Applique Cutter Name Role Phone Unavailable Unavailable Unavailable Surgery Details Not on file Complications Check Surgery Details section. Procedure Estimated Blood Loss Check Surgery Details section. Procedure Findings Check Surgery Details section. Procedure Specimens Taken Check Surgery Details section.
--- OUTSIDE RECORDS SUMMARY | 2023-08-21 06:14 | XMS_ITS | Referral Summary ---
Author Name Unknown Organization [facility] Address [address] [place] [address] Care Team Providers Care Personnel Coordinator Name Role Phone Brooklyn Morel APRN, C.N.P. Primary Care Provide r Source Comments Patient records contain information from all sites at [facility]. For routine questions regarding patient records, call [phone] during business hours, M-F 8:00 AM - 5:00 PM Central Time. Record requests for emergency care only can be directed to [phone] at any time.[facility] Encounters Date Type Department Care Team Description 08/13/2023 Orders Only [facility] S[facility]F [facility] [address] [place] [phone] Brooklyn Morel APRN, C.N.P. Screening Cancer Colon 08/13/2023 Orders Only [facility]CP [facility] Brooklyn Morel APRN, C.N.P. from Last 3 [...] any clubs o r organizations such as voodoo groups, unions, fraternal or athletic groups, or [...] Answer Date Recorded PHQ-2 Score 0 04/08/2023 [facility] of Occupat ional Health - Occupational Stress [...] Sex Assigned at Female 06/19/2022 4:23 PM LABOR ECONOMICS PROFESSOR Gender Identity Female 06/19/2022 4:23 PM LABOR ECONOMICS PROFESSOR Sexual Orientation Straight 06/19/2022 4: 23 PM LABOR ECONOMICS PROFESSOR Last Filed Vital Signs Vital Sign Reading [...] of Treatment Not on file Care Teams Personnel Coordinator Relationship Specialty Start Date End Date Brooklyn Morel APRN, C.N.P. [address] [place] [phone] PCP - General Family Medicine 12/24/22
== END 2023-08-20 10:53 | disposition home or self-care (01) ==
LOC: NFLDREF 08-21 06:12
PROVIDERS: PCP Nurse Practitioner Family; Referring Provider Nurse Practitioner Family; Visit Provider Nurse Practitioner Family
DX: R19.7 Diarrhea, unspecified (principal)
CPT/HCPCS: 87493

== ENCOUNTER 2023-11-04 14:45 | Outpatient (CLI) | payer BC, SELFPAY ==
--- OUTSIDE RECORDS SUMMARY | 2023-11-04 14:47 | XMS_ITS ---
Author Name Unknown Organization [facility] Address [address] [place] [address] Care Team Providers Care Sheet Rock Applier Name Role Phone Unavailable Unavailable Unavailable Surgery Details Not on file Complications Check Surgery Details section. Procedure Estimated Blood Loss Check Surgery Details section. Procedure Findings Check Surgery Details section. Procedure Specimens Taken Check Surgery Details section.
--- OUTSIDE RECORDS SUMMARY | 2023-11-04 14:47 | XMS_ITS | Encounter Summary ---
Author Name Unknown Organization [facility] Address [address] [place] [address] Care Team Providers Care Auto Apprentice Mechanic Name Role Phone Brooklyn Morel APRN, C.N.P. Primary Care Provide r Encounter Details Date Type Department Care Team (Late st Contact Info) Description 08/13/2023 Orders Only [facility] S[facility]F [facility] [address] [place] [address] Brooklyn Morel APRN, C.N.P. [address] [place] [address] Screening Cancer Colon Social History [...] often do you attend chur ch or temple services? Never 06/19/2022 Do you belong to any clubs o r organizations such as mandaeism groups, unions, fraternal or athletic groups, or [...] Answer Date Recorded PHQ-2 Score 0 04/08/2023 [facility] of Occupat ional Health - [...] place to sleep or slept in a halfway (including now)? No 06/19/2022 Nutrition Answer Date [...] Sex Assigned at Female 06/19/2022 4:23 PM BARN HAND Gender Identity Female 06/19/2022 4:23 PM BARN HAND Sexual Orientation Straight 06/19/2022 4: 23 PM BARN HAND documented as of this encounter Plan of Treatment Scheduled Orders Name Type Priority Associated Diagnoses Orde r Schedule Cologuard - Sent Out Lab Lab Routine Screening Cancer Colon Expected: 08/27/2023 (Approximate), Expires: 11/10/2024 documented as of this encounter Visit Diagnoses Diagnosis Screening Cancer Colon documented in this encounter Care Teams Auto Apprentice Mechanic Relationship Specialty Start Date End Date Brooklyn Morel APRN, C.N.P. [address] [place] [address] [place] [address] PCP - General Family Medicine 12/24/22 documented as of this encounter
--- OUTSIDE RECORDS SUMMARY | 2023-11-04 14:47 | XMS_ITS | Clinical Summary ---
Author Name Unknown Organization [facility] Address [address] [place] [address] Care Team Providers Care Security Chief Museum Name Role Phone Brooklyn Morel APRN, C.N.P. Primary Care Provide r Source Comments Patient records contain information from all sites at [facility]. For routine questions regarding patient records, call [phone] during business hours, M-F 8:00 AM - 5:00 PM Central Time. Record requests for emergency care only can be directed to [phone] at any time.[facility] Allergies Active Allergy Reactions Criticality Noted Date Comments Venom-Honey Bee Hives (Reselect Reaction),Itching 04/01/2021 Medications No known medications Encounters Date Type Department Care Team Description 08/27/2023 Orders Only [facility] S[facility]F TEST [facility] [address] [place] [phone] Brooklyn Morel APRN, C.N.P. Screening Cancer Colon 08/13/2023 Orders Only [facility] SELF TEST [facility] [address] [place] [place] [phone] Brooklyn Morel APRN, C.N.P. Screening Cancer Colon 08/13/2023 Orders Only [facility] PCP [facility] Brooklyn Morel APRN, C.N.P. from [...] Father's Brother 2 Alive Father's Sister 1 Maia Alive Father's Sister 2 Jade Father's Sister [...] often do you attend chur ch or episcopalian services? Never 06/19/2022 Do you belong to any clubs o r organizations such as christianity groups, unions, fraternal or athletic groups, or [...] Answer Date Recorded PHQ-2 Score 0 04/08/2023 [facility] of Occupat ional [facility] - Occupational Stress Questionnaire Answer Date [...] place to sleep or slept in a nursing home (including now)? No 06/19/2022 Nutrition Answer Date [...] Sex Assigned at Female 06/19/2022 4:23 PM EXHIBIT DISPLAY REPRESENTATIVE Gender Identity Female 06/19/2022 4:23 PM EXHIBIT DISPLAY REPRESENTATIVE Sexual Orientation Straight 06/19/2022 4: 23 PM EXHIBIT DISPLAY REPRESENTATIVE Last Filed Vital Signs Vital Sign Reading [...] Diabetes Screening 1973 HIV Screening 1973 Hepatitis C Screening 1973 Lipid (Cholesterol) Screening 1973 Hepatitis B Vaccines (1 of 3 - 19+ 3-dose series) 1992 Influenza Vaccine (#1) 2023 Depression Screening (Annual PHQ-2) 07/08/2023 Zoster Vaccines (1 of 2) 09/13/2023 Mammogram 12/27/2023 12/26/2022, 07/10, 08/24/2016, Additional history exists COVID-19 Vaccine ( - 2022- season) 2024 Postponed from 03/08/2023 (Patient Refused) DTaP,Tdap,and Td Vaccines (3 - Td or Tdap) 04/18/2031 04/18/2021, 01/07/2011, 01/28/2004, Additional history exists Pneumococcal vaccine (0-64 years) Aged Out No longer eligible based on patient's age to complete this topic Procedures Procedure Name Priority Date/Time Associated Diagnosis Comments BI BREAST SCREENING BILATERAL WITH TOMOSYNTHESIS RAD - Routine (most inpatients and all outpatients) 12/26/2022 10:12 AM CDT Screening Mammogram Breast Cancer from Last 3 Months or Most Recently Relevant to Health Maintenance Results * BI Breast Screening Bilateral with [...] Morel APRN, C.N.P. IMG BI PROCED URES from Last 3 Months or Most Recently Relevant to Health Maintenance Care Teams Security Chief Museum Relationship Specialty Start Date End Date Brooklyn Morel APRN, C.N.P. [address] [place] [phone] PCP - General Family Medicine 12/24/22
--- OUTSIDE RECORDS SUMMARY | 2023-11-04 14:47 | XMS_ITS | Clinical Summary ---
Author Name Unknown Organization [facility] Address [place], [place] [address] Care Team Providers Care Sewing Machine Operator Semiautomatic Name Role Phone Rosalinda Montalvo Primary Care [...] Health Maintenance Due Date Last Done Comments HIV for age 15-65 1988 Hepatitis C screening for age 18-79 09/13/1991 Depression screening for age 12+ 03/08/2017 03/08/2016 BMI (ht and wt on same day) for age 18+ 03/20/2017 03/20/2016, 03/08/2016 Colonoscopy through age 75 2018 Lipids for age 45-75 2018 12/22/2012 Mammogram for age 45-75 2018 Tetanus booster 01/07/2021 01/07/2011, 01/06 (Completed outside of [facility]), 01/28/2004 Pap test for age 21-65 05/15/2022 9, 05/15/2019, 08/14/2016, Additional history exists COVID-19 vaccine series ( - 2022-24 season) 2023 Zoster (shingles) series for age 50+ (1 of 2) 09/13/2023 Influenza for age 50-64 03/08/2024 Tdap Completed 01/07/2011 Pneumococcal series for age 6-64 Aged Out No longer eligible based on patient's age to complete this topic Procedures Procedure Name Priority Date/Time Associated Diagnosis Comments WILLOW ANALYST THIN PREP PAP SCREEN IMAGED Routine 05/15/2019 3:45 PM MORTGAGE COLLECTOR LIPID PANEL W REFLEX MEASURED LDL Routine 12/22/2012 3:32 PM CDT Screening for lipoid disorders from Last 3 Months or Most Recently Relevant to Health Maintenance Results * WILLOW ANALYST THIN PREP PAP SCREEN IMAGED (05/15/2019 3:45 PM MORTGAGE COLLECTOR) Case Report Gynecologic Cytology Report ? Case: [id number] ? Authorizing Provider: ??Taylor Giraldo PA-C ?Collected: ? 05/15/2019 1545 ? Ordering Location: ? [facility] ?Received: ?05/19/2019 1343 ? First Screen: ?Radha Proctor ? Pathologist: ? Jaime Arambula Jr., ? MD ? Specimen: ?WILLOW ANALYST ThinPrep Vial Screening, Cervical/Vaginal ? 06/01/2019 3:04 PM [facility] INTERPRETATION/ RESULT NEGATIVE FOR INTRAEPITHELIAL LESION OR MALIGNANCY (NIL) (none) 06/01/2019 3:04 PM [facility] R Endometrial cells in a woman more than 45 years of age. 06/01/2019 3:04 PM [facility] EDUCATIONAL NOTES & SUGGESTIONS Endometrial cells after the age of 45, particularly out of phase or after menopause, may be associated with benign endometrium, hormonal alterations and less commonly with endometrial uterine abnormalities. Endometrial cells correlate with the menstrual history provided. 06/01/2019 3:04 PM [facility] SPECIMEN ADEQUACY Satisfactory for evaluation Endocervical component present 06/01/2019 3:04 PM [facility] HPV REQUEST HPV and PAP 06/01/2019 3:04 PM [facility] Date of LMP 05/09/2019 06/01/2019 3:04 PM [facility] Last Pap Date 08/14/2016 06/01/2019 3:04 PM [facility] Last Pap Result NIL 9 3:04 PM [facility] Automated Review Successful 06/01/2019 3:04 PM [facility] Comment:Specimen processed s uccessfully by automated bolter helper device, ThinPrep Imaging System, [employer] ANCILLARY TESTING WILLOW ANALYST HPV Ordered, Please see separate report 06/01/2019 3:04 PM [facility] Note The pap test is a screening technique, not a diagnostic procedure. ??It is used primarily to screen for squamous cancers and precursor lesions. ??Published studies have shown that it is subject to both false negative and false positive results. ??The pap test should not be used as the sole means to diagnose or exclude pre-malignant and malignant lesions. Cytology is screened and interpreted at [facility] - [address], [place] [address] and [facility] - [address]; [place] [address] and [facility] - [address]; [place] [address] [address] [facility] [address]; [place] [address] 06/01/2019 3:04 PM MORTGAGE COLLECTOR [facility] Other (Cervical/Vagina l) 05/15/2019 3:45 PM MORTGAGE COLLECTOR 05/19/2019 1:43 PM MORTGAGE COLLECTOR Taylor [facility]/CYTOLOGY [facility] [address] [place] [address], * LIPID PANEL W REFLEX MEASURED LDL (12/22/2012 3:32 PM CDT) CHOLESTEROL,TOTA L 164 100 - 199 mg/dL [facility] 74 <150 mg/dL [facility] HDL CHOLESTEROL 67 >40 mg/dL [facility] CHOL/HDL RATIO 2.45 <4.50 [facility] NON-HDL CHOLESTEROL 97 Undefined mg/dL [facility] LDL CHOLESTEROL 82 <131 mg/dL [facility] PATIENT STATUS Fasting [facility] Blood specimen (specimen) BLOOD SPECIMEN / Unknown 12/22/2012 3:32 PM CDT 12/22/2012 3:24 PM CDT Rosalinda PAREKH CHEMISTRY [facility] [place]NAL ZIP [address] [place] [address] from Last 3 Months or Most Recently Relevant to Health Maintenance Care Teams Sewing Machine Operator Semiautomatic Relationship Specialty Start Date End Date Rosalinda Montalvo PA PCP - General Family Practice 12/22/12
--- OUTSIDE RECORDS SUMMARY | 2023-11-04 14:47 | XMS_ITS | Encounter Summary ---
Author Name Unknown Organization [facility] Address [address] [place] [address] Care Team Providers Care Tire Care Manager Name Role Phone Brooklyn Morel APRN, C.N.P. Primary Care Provide r Encounter Details Date Type Department Care Team (Late st Contact Info) Description 08/27/2023 Orders Only [facility] SELF [facility] [address] [place] [address] Brooklyn Morel APRN, C.N.P. [address] [place] [address] Screening Cancer Colon Social History [...] often do you attend chur ch or congregation services? Never 06/19/2022 Do you belong to any clubs o r organizations such as restorationism groups, unions, fraternal or athletic groups, or [...] Answer Date Recorded PHQ-2 Score 0 04/08/2023 [facility] of Occupat ional Health - Occupational [...] Sex Assigned at Female 06/19/2022 4:23 PM CIRCULAR TANK COOPER Gender Identity Female 06/19/2022 4:23 PM CIRCULAR TANK COOPER Sexual Orientation Straight 06/19/2022 4: 23 PM CIRCULAR TANK COOPER documented as of this encounter Plan of Treatment Not on file documented as of this encounter Visit Diagnoses Diagnosis Screening Cancer Colon documented in this encounter Care Teams Tire Care Manager Relationship Specialty Start Date End Date Brooklyn Morel APRN, C.N.P. [address] [place] [address] PCP - General Family Medicine 12/24/22 documented as of this encounter
--- OUTSIDE RECORDS SUMMARY | 2023-11-04 14:47 | XMS_ITS | Referral Summary ---
Author Name Unknown Organization [facility] Address [address] [place] [address] Care Team Providers Care Media Law Faculty Member Name Role Phone Brooklyn Morel APRN, C.N.P. Primary Care Provide r Source Comments Patient records contain information from all sites at [facility]. For routine questions regarding patient records, call [phone] during business hours, M-F 8:00 AM - 5:00 PM Central Time. Record requests for emergency care only can be directed to [phone] at any time.[facility] Encounters Date Type Department Care Team Description 08/27/2023 Orders Only [facility] SELF TEST [facility] [address] [place] [place] [address] Brooklyn Morel APRN, C.N.P. Screening Cancer Colon 08/13/2023 Orders Only [facility] SELF TEST [facility] [address] [place] [address] Brooklyn Morel APRN, C.N.P. Screening Cancer Colon 08/13/2023 Orders Only [facility]CP [facility] Brooklyn Morel APRN, C.N.P. from Last [...] week 06/19/2022 How often do you attend [facility] or rastafari services? Never 06/19/2022 Do you belong to any clubs o r organizations such as baptism groups, unions, fraternal or athletic groups, or [...] Answer Date Recorded PHQ-2 Score 0 04/08/2023 [facility] of Occupat ional Health - Occupational Stress [...] place to sleep or slept in a skilled nursing (including now)? No 06/19/2022 Nutrition Answer Date [...] Sex Assigned at Female 06/19/2022 4:23 PM FRAME OPERATOR Gender Identity Female 06/19/2022 4:23 PM FRAME OPERATOR Sexual Orientation Straight 06/19/2022 4: 23 PM FRAME OPERATOR Last Filed Vital Signs Vital Sign Reading [...] CDT Plan of Treatment Not on file Procedures Procedure Name Priority Date/Time Associated Diagnosis [...] Annual Screening Mammogram ASSESSMENT: BI-RADS: 1: Negative. Kieran Villa APRNN.PTigist IMG BI PROCED URES from Last 3 Months or Most Recently Relevant to Health Maintenance Care Teams Media Law Faculty Member Relationship Specialty Start Date End Date Brooklyn Morel APRN, C.N.P. [address] [place] [phone] PCP - General Family Medicine 12/24/22
--- OUTSIDE RECORDS SUMMARY | 2023-11-04 14:47 | XMS_ITS | Encounter Summary ---
Author Name Unknown Organization [facility] Address [address] [place] [address] Care Team Providers Care Managing Jeweler Name Role Phone Brooklyn Morel APRN, C.N.P. Primary Care Provide r Reason for Referral * Outpatient (Routine) - Authorized Specialty Diagnoses / Procedures Referred By Chrystal t Referred To Contact Family Medicine Brooklyn Morel APRN, C.N.P. [address] [place] [address] [facility] Referral ID Status Reason Start Date Expiration Date V isits Requested Visits Authorized [id number] Authorized 08/13/2023 02/11/2025 1 1 CH WORKER Encounter Details Date Type Department Care Team (Late st Contact Info) Description 08/13/2023 Orders Only [facility] Brooklyn Morel APRN, C.N.P. [address] [place] [address] Social History Tobacco Use Types [...] often do you attend chur ch or catholic services? Never 06/19/2022 Do you belong to any clubs o r organizations such as advent groups, unions, fraternal or athletic groups, or [...] Answer Date Recorded PHQ-2 Score 0 04/08/2023 [facility] of Occupat ional Health - Occupational [...] Sex Assigned at Female 06/19/2022 4:23 PM CHURCH WORKER Gender Identity Female 06/19/2022 4:23 PM CHURCH WORKER Sexual Orientation Straight 06/19/2022 4: 23 PM CHURCH WORKER documented as of this encounter Plan of Treatment Scheduled Referrals Name Type Priority Associated Diagnoses Orde r Schedule Family Medicine office visit (clinic) Outpatient Referral Routine Expected: 08/27/2023, Expires: 02/09/2024 documented as of this encounter Visit Diagnoses Not on filedocumented in this encounter Care Teams Managing Jeweler Relationship Specialty Start Date End Date Brooklyn Morel APRN, C.N.P. [address] [place] [address] PCP - General Family Medicine 12/24/22 documented as of this encounter
[2023-11-04 22:19] LABS: Strep A DNA Probe* NOT DETECTED (Not Detectd)
== END 2023-11-04 14:46 | disposition home or self-care (01) ==
LOC: KYNREF 14:46
PROVIDERS: PCP Nurse Practitioner Family; Visit Provider Nurse Practitioner Family
DX: J02.9 Acute pharyngitis, unspecified (principal)
CPT/HCPCS: 87651